=== PATIENT | male | born 1980 | race Caucasian/White ===

== ENCOUNTER 2024-03-09 14:09 | Outpatient (AMB) | payer BC, SELFPAY ==
[2024-03-09 14:15] VITALS: BP 162/89; PULSE 103; O2SAT 96; BMI 43.4
--- NOTE | 2024-03-09 14:15 | A.OFFVIS_ITS ---
Vital Signs 03/09/24 14:15 Height 5 ft 6 in Weight 269 lb BMI 43.4 BP 162/89 H Blood Pressure Location Rt brachial Position Sitting Pulse 103 H Pulse Source Pulse Oximeter Pulse Oximetry (%) 96 Oxygen Delivery Method Room Air Intake Visit Reasons: Neck/arm pain Allergies No Known Allergies Allergy (Verified 03/09/24 14:21) HPI Comments Details: Carlos is a very pleasant 43-year-old male who presents the office today for evaluation and management of his left hand paresthesia Patient reports he has been suffering with this condition since 2013. 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 Improves with rest and with certain positions He recently purchased carpal tunnel hand splint and has been using this with good improvement Pain today is rated as a 0/10 In terms of muscle damage condition is described as aching, burning, numbness, pins and needles Pain is negatively impacting patient's enjoyment of life and sleep Denies implantable devices, pacemaker defibrillator Denies current use of anticoagulants Denies current use of nicotine, tobacco or illicit substances Endorses social alcohol use, couple beers per week Review of Systems Const All systems reviewed & are unremarkable except as noted in HPI and below Physical Exam Vital Signs: Last Vital Signs Pulse 103 H 03/09/24 14:15 BP 162/89 H 03/09/24 14:15 Pulse Ox 96 03/09/24 14:15 Oxygen Delivery Method Room Air 03/09/24 14:15 BMI result Body Mass Index 43.4 General: awake, alert, oriented. Answers questions appropriately. Fully engaged in examination. Skin: warm, dry, intact HEENT: Normocephalic. Hearing intact. Cardiac: External chest normal in appearance. Respiratory: No cough, audible wheezing or stridor. Abdomen: without gross distension. MS: No obvious swelling or deformities. Full cervical range of motion Elvey negative bilaterally Bilateral upper extremity strength 5/5 DTRs intact Light touch sensation intact Cervical facet loading negative Neurological: Oriented to person, place, time and situation. Thought process intact. No gait abnormalities appreciated. Psychiatric: Appropriate mood and affect. Good judgment and insight. Results Reviewed Results Reviewed: 02/2024 cervical spine x-ray: No acute osseous abnormality or significant degenerative change. Assessment & Plan Assessment & Plan (1) Arm paresthesia, left: Code(s): R20.2 - Paresthesia of skin Category: Medical Plan EMG ordered for evaluation Amitriptyline 10 mg p.o. q.h.s., after one-week may increase to 20 mg q.h.s. All questions and concerns were answered, patient agrees with the plan. Follow up after EMG, sooner if needed Orders: Orders NE electromyogram (EMG) Today R20.2 - Paresthesia of skin Medications: New amitriptyline 10 mg daily at bedtime for 1 week then may increase to 20 mg at bedtime 10 mg PO BEDTIME 60 tabs 0RF Coding Level of Care Code New Pt Level 4 (03646) Complex EM visit Add On G2211 Diagnoses Arm paresthesia, left R20.2
== END 2024-03-09 14:47 | disposition home or self-care (01) ==
PROVIDERS: PCP Internal Medicine; Visit Provider Registered Nurse Emergency
DX: R20.2 Paresthesia of skin (principal)
CPT/HCPCS: 99204

== ENCOUNTER → 2024-03-09 14:09 | Outpatient (BNVA) | payer BC, SELFPAY | PROVIDERS: PCP Internal Medicine; Visit Provider Registered Nurse Emergency ==

== ENCOUNTER 2024-03-31 15:19 | Outpatient (REF) | payer BC, SELFPAY ==
--- NOTE | 2024-03-31 15:23 | EMG_ITS ---
Chief complaint: Chronic recurrent numbness on left arm/hand. Worsened few months ago with left elbow pain. Numbness primarily on left 3rd to 5th digits. Reason for referral: Evaluate for ulnar neuropathy versus Carpal Tunnel Syndrome Referred by: Nara Dumont NP Procedure done: Precautions and/or limitations: None The limb temperature was monitored continuously and remained between 32-36 degrees C during the performance of the NCS. Ulnar motor NCS was performed with moderate elbow flexion between 70-90 degrees, with across-elbow distance of 10 cm. Nerve Conduction Studies Anti Sensory Summary Table ?Stim Site NR Onset (ms) Norm Onset (ms) Peak (ms) Norm Peak (ms) O-P Amp (?V) Norm O-P Amp Site1 Site2 Delta-0 (ms) Dist (cm) Reggie (m/s) Norm Reggie (m/s) Left Median Anti Sensory (2nd Digit) Wrist ? 3.6 4.9 <3.6 20.7 >10 Wrist 2nd Digit 3.6 14.0 39 Left Radial Anti Sensory (Thumb) Forearm ? 1.5 2.2 <3.1 31.1 Forearm Thumb 1.5 0.0 Left Ulnar Anti Sensory (5th Digit) Wrist ? 2.3 3.2 <3.7 25.1 >15.0 Wrist 5th Digit 2.3 14.0 61 Motor Summary Table ?Stim Site NR Onset (ms) Norm Onset (ms) O-P Amp (mV) Norm O-P Amp iAmp (mV) Amp (1st) (%) Site1 Site2 Delta-0 (ms) Dist (cm) Reggie (m/s) Norm Reggie (m/s) Left Median Motor (Abd Poll Brev) Wrist ? 6.1 <3.9 4.3 >4.5 5.4 100.0 Elbow Wrist 4.4 22.5 51 >45 Elbow ? 10.5 3.4 4.2 79.1 Left Ulnar Motor (Abd Dig Minimi) Wrist ? 2.8 <3.0 6.5 >5 7.5 100.0 B Elbow Wrist 3.2 19.0 59 >45 B Elbow ? 6.0 6.2 7.5 95.4 A Elbow B Elbow 1.3 10.0 77 >45 A Elbow ? 7.3 6.1 7.5 93.8 EMG ?Side Muscle Nerve Root Ins Act Fibs Psw Amp Dur Poly Recrt Int Pat Comment Left 1stDorInt Ulnar C8-T1 Nml Nml Nml Nml Nml 0 Nml Complete Left FlexCarRad Median C6-7 Nml Nml Nml Nml Nml 0 Nml Complete Left Biceps Musculocut C5-6 Nml Nml Nml Nml Nml 0 Nml Complete Left Triceps Radial C6-7-8 Nml Nml Nml Nml Nml 0 Nml Complete Left Deltoid Axillary C5-6 Nml Nml Nml Nml Nml 0 Nml Complete Left FlexCarpiUln Ulnar C8,T1 Nml Nml Nml Nml Nml 0 Nml Complete Paraspinal EMG ?Side Muscle Nerve Root Ins Act Fibs Psw Comment Left Cervical Upper Rami Nml Nml Nml Left Cervical Mid Rami Nml Nml Nml Left Cervical Lower Rami Nml Nml Nml FINDINGS: Left median motor nerve showed prolonged distal latency, small amplitude and normal conduction velocity. Left median sensory nerve showed prolonged peak latency. showed peak latency. showed peak latency. All other nerves tested were within normal. Concentric needle EMG was performed in selected muscles of the left upper extremity and cervical paraspinals. Study did not reveal signs of electric abnormalities as shown in the table above. IMPRESSION: IMPRESSION: 1. This is an abnormal study. 2. 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 3. There is no electrodiagnostic evidence for ulnar neuropathy, brachial plexopathy, or cervical radiculopathy. CLINICAL COMMENT: If continues to have numbness on left 5th digit, consider repeating this test in 6 months. Thank you for your kind referral. Anita Douglass MD, ISAAK Board Certified, [place] [employer] and [employer] (ABPMR) Board Certified, [place] [employer] Electro[employer] (ABEM) [place] [id number] [facility]
== END 2024-03-31 15:20 | disposition home or self-care (01) ==
LOC: HO.NEURO 15:19
PROVIDERS: PCP Internal Medicine; Visit Provider Registered Nurse Emergency
DX: R20.2 Paresthesia of skin (principal)
CPT/HCPCS: 95886; 95909

== ENCOUNTER → 2024-03-31 15:23 | Outpatient (BNV) | payer BC, SELFPAY | PROVIDERS: PCP Internal Medicine; Visit Provider Physical Medicine & Rehabilitation | DX: G56.02 Carpal tunnel syndrome, left upper limb (principal) | CPT/HCPCS: 95886; 95909 ==